=== PATIENT | female | born 1980 | race Caucasian/White ===

== ENCOUNTER 2020-12-20 21:52 | Emergency (ER) | payer OTHER ==
[2020-12-20 23:49] LABS: RED BLOOD COUNT 3.18 M/UL (4.00-5.10); WHITE BLOOD COUNT 4.5 K/UL (4.5-11.0)
[2020-12-21 00:06] LABS: BUN/CREATININE RATIO 19 (0-10)
[2020-12-21] MEDS ORDERED: IBUPROFEN400 MG PO (02:42)
== END 2020-12-21 02:54 | disposition home or self-care (01) ==
LOC: ER1 21:52
PROVIDERS: Family Medicine
DX: K80.20 Calculus of gallbladder without cholecystitis without obstruction (principal); F17.200 Nicotine dependence, unspecified, uncomplicated; Z88.1 Allergy status to other antibiotic agents
CPT/HCPCS: 80053; 82550; 82553; 83605; 83690; 84484; 84703; 85025; 85610; 86140; 87040; 99284; Q9967

== ENCOUNTER 2021-01-09 14:52 | Inpatient (IN) | payer OTHER ==
[~2021-01-09] VITALS: Ht 160 cm; Wt 79.9 kg
[~2021-01-09 14:52] MED LIST: IBUPROFEN400 MG PO
[2021-01-09 15:41] LABS: HEMOGLOBIN 7.5 gm/dl (12.3-15.3); RED BLOOD COUNT 2.61 M/UL (4.00-5.10); WHITE BLOOD COUNT 7.9 K/UL (4.5-11.0)
[2021-01-09 16:17] LABS: BUN/CREATININE RATIO 15 (0-10)
[2021-01-09] MEDS ORDERED: PEG3350510 GM PO (19:06)
[2021-01-09] MEDS ORDERED: FUROSEMIDE40 MG PO (19:39)
[2021-01-09] MEDS ORDERED: PROTONIX 40 MG40 M1 PO (19:40)
[2021-01-09] MEDS ORDERED: SPIRONOLACTONE100 MG PO (19:41)
[2021-01-09] MEDS ORDERED: TRAZODONE HCL50 MG PO (19:44)
[2021-01-09 21:36] LABS: HEMOGLOBIN 6.9 gm/dl (12.3-15.3)
[2021-01-10 02:53] LABS: RED BLOOD COUNT 2.41 M/UL (4.00-5.10)
[2021-01-10 02:55] LABS: WHITE BLOOD COUNT 5.9 K/UL (4.5-11.0)
[2021-01-10 02:56] LABS: HEMOGLOBIN 6.9 gm/dl (12.3-15.3)
[2021-01-10 10:41] LABS: HEMOGLOBIN 8.6 gm/dl (12.3-15.3)
[2021-01-11 03:42] LABS: HEMOGLOBIN 8.1 gm/dl (12.3-15.3); WHITE BLOOD COUNT 4.8 K/UL (4.5-11.0)
[2021-01-11 03:48] LABS: RED BLOOD COUNT 2.82 M/UL (4.00-5.10)
[2021-01-11 04:11] LABS: BUN/CREATININE RATIO 11 (0-10)
[2021-01-12 03:04] LABS: RED BLOOD COUNT 2.81 M/UL (4.00-5.10); WHITE BLOOD COUNT 4.8 K/UL (4.5-11.0)
[2021-01-12 03:32] LABS: BUN/CREATININE RATIO 15 (0-10)
[2021-01-12] MEDS ORDERED: CYCLOBENZAPRINE10 MG PO (19:08)
[2021-01-13 04:31] LABS: HEMOGLOBIN 8.5 gm/dl (12.3-15.3); RED BLOOD COUNT 2.94 M/UL (4.00-5.10)
[2021-01-13 04:51] LABS: BUN/CREATININE RATIO 15 (0-10)
[2021-01-13] MEDS ORDERED: MIDODRINE HCL2.5 MG PO (11:21)
== END 2021-01-13 12:35 | disposition home or self-care (01) | DRG 433 ==
LOC: ER1 14:52 → CDU 17:38 → MED SURG 4 18:34
PROVIDERS: Emergency Medicine; Physician Assistant; ADMIT Internal Medicine
DX: K70.31 Alcoholic cirrhosis of liver with ascites (principal); J98.11 Atelectasis; D64.89 Other specified anemias; D69.6 Thrombocytopenia, unspecified; F10.10 Alcohol abuse, uncomplicated; E87.70 Fluid overload, unspecified; R01.1 Cardiac murmur, unspecified; I95.9 Hypotension, unspecified; Z86.19 Personal history of other infectious and parasitic diseases; Z88.2 Allergy status to sulfonamides; Z72.0 Tobacco use
CPT/HCPCS: ECHO; 36415; 36430; 71045; 71046; 80048; 80053; 80307; 81001; 82272; 82550; 82553; 82728; 83540; 83550; 83735; 83874; 83880; 84100; 84484; 84703; 85014; 85018; 85025; 85610; 85730; 86850; 86900; 86901; 86920; 93005; 93306; 96374; 96375; 96376; 99284; G0378; J1756; J1940; J7040; P9016; U0002